=== PATIENT | female | born 1960 | race Caucasian/White ===

== ENCOUNTER 2016-11-15 12:12 | Emergency (ER) | payer OTHER ==
--- NOTE | ~2016-11-15 | CR126 ---
[facility] A Service of [facility] RADIOLOGY TEXT RESULTS PATIENT: MYLENE GONZALEZ LOCATION: [facility] : 62 UNIT #: [id number] AGE: [address]: Melissa Hagen SEX: F ORDER DR: [id number] [facility] [address] [place], [place] [address] [id number] E MR#: [id number] Acc #: [id number] NAME: MYLENE GONZALEZ : 1960 SEX: F STUDY DATE/TIME: 11/15/2016 12:28 UNIT: [facility] ROOM: STUDY DESCRIPTION: CR Foot Complete Min 3 View Lt Attending Physician: Melissa Hagen P.A.-C. Ordering Physician: Ed Doc Safia Edward Primary Care Physician: No Primary Care Physician MEDICAL IMAGING REPORT This report is preliminary unless electronic signature is present EXAM Left foot series 11/15/2016. HISTORY 56-year-old female in the ED with left foot and ankle pain, swelling and bruising after fall down steps last evening. TECHNIQUE Three-view left foot series. FINDINGS The examination is negative. No fracture, dislocation or other acute osseous abnormality is demonstrated. IMPRESSION Negative left foot series. Dictated by... Jose Carlos Red M.D. THIS IS AN ELECTRONICALLY VERIFIED REPORT Jose Carlos Red M.D. at 11/17/2016 8:49 AM EDMOND/nelly TD: 11/16/2016 08:55 JOB #: [id number] MEDICAL IMAGING REPORT Page 1 of 1 COPY
--- NOTE | ~2016-11-15 | CR20 ---
[facility] A Service of [facility] RADIOLOGY TEXT RESULTS PATIENT: MYLENE GONZALEZ LOCATION: [facility] : 62 UNIT #: [id number] AGE: [address]: Melissa Hagen SEX: F ORDER DR: [id number] [facility] [address] [place], [place] [address] [id number] E MR#: [id number] Acc #: [id number] NAME: MYLENE GONZALEZ : 1960 SEX: F STUDY DATE/TIME: 11/15/2016 12:27 UNIT: [facility] ROOM: STUDY DESCRIPTION: CR Ankle Min 3 Views Lt Attending Physician: Melissa Hagen P.A.-C. Ordering Physician: [facility] Primary Care Physician: Primary Care Physician No MEDICAL IMAGING REPORT This report is preliminary unless electronic signature is present EXAM Left ankle series, 11/15/2016 HISTORY 56-year-old female in the ED complaining of left foot and ankle pain, swelling and bruising after a fall down steps last evening. TECHNIQUE Three-view left ankle series. FINDINGS No fracture, dislocation or other acute osseous abnormality is demonstrated. Chronic rounded ossicle is incidentally noted distal to the tip of the fibula. IMPRESSION No acute osseous abnormality. Dictated by... Jose Carlos Red M.D. THIS IS AN ELECTRONICALLY VERIFIED REPORT Jose Carlos Red M.D. at 11/17/2016 8:49 AM EDMOND/tyrone TD: 11/16/2016 08:54 JOB #: [id number] MEDICAL IMAGING REPORT Page 1 of 1 COPY
== END 2016-11-15 13:30 | disposition home or self-care (01) ==
LOC: CFTX 12:12 → CED 12:12 → CFTX 13:30
DX: S93.492A Sprain of other ligament of left ankle, initial encounter (principal); S93.432A Sprain of tibiofibular ligament of left ankle, initial encounter; J44.9 Chronic obstructive pulmonary disease, unspecified; Z88.5 Allergy status to narcotic agent; W10.9XXA Fall (on) (from) unspecified stairs and steps, initial encounter; Y92.009 Unspecified place in unspecified non-institutional (private) residence as the place of occurrence of the external cause
CPT/HCPCS: 29405; 73610; 73630; 99283

== ENCOUNTER 2017-01-10 16:44 | Emergency (ER) | payer OTHER ==
[~2017-01-10] VITALS: Ht 157.5 cm; Wt 55.3 kg
--- NOTE | ~2017-01-10 | CR210 ---
[facility] A Service of [facility] RADIOLOGY TEXT RESULTS PATIENT: MYLENE GONZALEZ LOCATION: [facility] : 62 UNIT #: [id number] AGE: [address]: Price Driver SEX: F ORDER DR: [id number] [facility] [address] [place], [place] [address] [id number] E MR#: [id number] Acc #: [id number] NAME: MYLENE GONZALEZ : 1960 SEX: F STUDY DATE/TIME: 01/10/2017 18:16 UNIT: [facility] ROOM: STUDY DESCRIPTION: CR Ribs Uni 2 View W PA Ch Lt Attending Physician: Price Driver P.A.-C. Ordering Physician: Melissa Hagen P.A.-C. Primary Care Physician: Primary Care Physician No MEDICAL IMAGING REPORT This report is preliminary unless electronic signature is present EXAM Frontal chest and left rib series, 01/10/2017 INDICATION Rib pain, left-sided chest pain since Wednesday when she felt a pop while moving groceries in the back of her car. TECHNIQUE Frontal chest and 3 views left ribs compared with 06/12/2011. FINDINGS Cardiac silhouette unremarkable. Vascularity normal. Lungs clear. No distinct rib fracture. IMPRESSION Negative frontal chest and left rib series. Dictated by... Panfilo Gonzales M.D. THIS IS AN ELECTRONICALLY VERIFIED REPORT Panfilo Gonzales M.D. at 01/10/2017 11:33 PM Antonietta TD: 01/10/2017 23:28 JOB #: [id number] MEDICAL IMAGING REPORT Page 1 of 1 COPY
== END 2017-01-10 20:25 | disposition home or self-care (01) ==
LOC: CED 16:44 → CFTX 16:44
DX: S20.212A Contusion of left front wall of thorax, initial encounter (principal); J44.9 Chronic obstructive pulmonary disease, unspecified; M19.90 Unspecified osteoarthritis, unspecified site; Z87.891 Personal history of nicotine dependence; Z88.5 Allergy status to narcotic agent; W22.8XXA Striking against or struck by other objects, initial encounter; Y92.009 Unspecified place in unspecified non-institutional (private) residence as the place of occurrence of the external cause
CPT/HCPCS: 71101; 99283